=== PATIENT | male | born 1965 | race Caucasian/White ===

== ENCOUNTER 2018-05-05 12:03 | Emergency (ER) | payer BC ==
[2018-05-05 13:50] VITALS: BP 139/93
--- NOTE | 2018-08-02 14:39 | UC ---
Ear Complaint HPI - HPI Summary HPI Summary: L ear had blood and waxy discharge after using qtip last night. since then hearing has changed. - History of Current Complaint Chief Complaint: UCEar Stated Complaint: LT EAR PAIN Time Seen by Provider: 05/05/18 13:37 Hx Obtained From: Patient Onset/Duration: Sudden Onset Pain Intensity: 0 Pain Scale Used: 0-10 Numeric Aggravating Factors: Nothing Alleviating Factors: Nothing - Allergies/Home Medications Allergies/Adverse Reactions: Allergies Allergy/AdvReac Type Severity Reaction Status Date / Time No Known Allergies Allergy Verified 02/14/17 10:49 PMH/Surg Hx/FS Hx/Imm Hx GI/ History: Gastroesophageal Reflux - Surgical History Surgical History: Yes Surgery Procedure, Year, and Place: radical neck surgery 2012 - Family History Known Family History: Positive: Cardiac Disease - Social History Alcohol Use: Daily Alcohol Amount: 12 pack daily Substance Use Type: None Smoking Status (MU): Heavy Every Day Tobacco Smoker Type: Cigarettes Amount Used/How Often: 1PPD Length of Time of Smoking/Using Tobacco: since age 16 Have You Smoked in the Last Year: Yes Household Exposure Type: Cigarettes - Immunization History Most Recent Tetanus Shot: unknown, doesn't think he's UTD Review of Systems All Other Systems Reviewed And Are Negative: Yes Constitutional: Negative: Fever Skin: Negative: Rash ENT: Positive: Other - L ear: muffled hearing, noticed blood and wax.. Negative : Ear Ache Physical Exam Triage Information Reviewed: Yes Appearance: Well-Appearing Vital Signs: Initial Vital Signs Temp 98.8 F 05/05/18 13:42 Pulse 83 05/05/18 13:42 Resp 18 05/05/18 13:42 BP 139/93 05/05/18 13:42 Pulse Ox 100 05/05/18 13:42 Vital Signs Reviewed: Yes ENT: Positive: Hearing grossly normal, Pharynx normal, TMs normal - R side, Other - L canal has some trauma , L TM unclear if torn Neck: Positive: Supple Ear Complaint Course/Dx - Course Course Of Treatment: Trauma w/ qtip to L canal/?TM. will rx antibx to cover for possible tear but strongly encouraged to f/u w ENT given his hx. hearing is grossly intact today. - Differential Dx/Diagnosis Differential Diagnosis/HQI/PQRI: Barotrauma, Otitis Media, URI Provider Diagnosis: Hearing loss Discharge - Sign-Out/Discharge Documenting (check all that apply): Patient Departure All imaging exams completed and their final reports reviewed: No Studies - Discharge Plan Condition: Good Disposition: HOME Prescriptions: Ciproflox/Dexameth OTIC.SUSP* [Ciprodex OTIC.SUSP*] 1 drop .SEE ORDER BID 5 Days #1 btl Patient Education Materials: Hearing Loss (ED) Referrals: Gary Mccurdy [Medical Doctor] - Additional Instructions: Please follow up with ENT to get evaluated. Given your history of cancer this should be followed up outpatient. - Billing Disposition and Condition Condition: GOOD Disposition: Home
== END 2018-05-05 14:07 | disposition home or self-care (01) ==
LOC: UCCORT 12:03
DX: H91.92 Unspecified hearing loss, left ear (principal); H92.22 Otorrhagia, left ear; K21.9 Gastro-esophageal reflux disease without esophagitis; F17.210 Nicotine dependence, cigarettes, uncomplicated
CPT/HCPCS: 99212; G0463

== ENCOUNTER 2022-09-30 14:39 | Inpatient (IN) ==
[2022-09-30] MEDS ORDERED: TENECTEPLASE 50 MG VIAL KIT 5 MG/ML (reconstituted) IV ONE (14:44)
[2022-09-30] MEDS ORDERED: Labetalol IV 5 MG/ML 20 ml VIAL ONE (14:45)
[2022-09-30] MEDS ORDERED: niCARdipine 0.1MG/ML IVPREMIX 20 MG/200 ML BAG IV ONE (14:45)
[2022-09-30] MEDS ORDERED: Iodixanol (CONTRAST) 320 MG/ML 100 ML SDV IV ONE (14:49)
[2022-09-30] MEDS ORDERED: Labetalol IV 5 MG/ML 20 ml VIAL IV PUSH ONE ×2 (15:02→17:03)
[2022-09-30] MEDS ORDERED: NS 0.9% 1000 ml BAG 1,000 ML IV ONE (15:07)
[2022-09-30 15:16] LABS: ABS Basophils 0.1 10^3/uL (0.0-0.1); ABS Eosinophils 0.1 10^3/uL (0.0-0.5); ABS Monocytes 0.7 10^3/uL (0.0-1.1); ABS Neutrophils 3.7 10^3/uL (1.5-7.6); ABS Nucleated RBC 0.01 10^3/ul; Eosinophil % 1.5 %; Hematocrit 45.5 % (38-53); Hemoglobin 15.6 g/dL (13.2-16.3); Lymphocyte % 18.7 %; Mean Corpuscular Hemoglobin 32.4 pg (27-33); Mean Corpuscular Hgb Conc 34.4 g/dL (31-36); Mean Corpuscular Volume 94.1 fL (80-97); Mean Platelet Volume 7.6 fL (7.5-11.2); Nucleated Red Blood Cells % 0.1 /100 WBC (0.0-0.4); Platelet Count 234 10^3/uL (150-450); Red Blood Count 4.83 10^6/uL (4.06-5.63); White Blood Count 5.5 10^3/uL (3.6-10.2)
[2022-09-30 15:48] LABS: Albumin 4.1 g/dL (3.2-5.2); Albumin/Globulin Ratio 1.2 (1-3); Calcium 9.1 mg/dL (8.6-10.3); Creatinine, Serum 0.76 mg/dL (0.67-1.17); Globulin 3.3 g/dL (2-4); HDL Cholesterol 55.3 mg/dL; Potassium 3.9 mmol/L (3.5-5.0); Total Bilirubin 0.3 mg/dL (0.2-1.0); Total Protein 7.4 g/dL (6.4-8.9); eGFR CKD-EPI 105.5 (>60)
[2022-09-30 17:35] LABS: Urine Appearance Clear; Urine Bilirubin Negative (Negative); Urine Blood Negative (Negative); Urine Color Yellow; Urine Glucose Negative (Negative); Urine Ketones Negative (Negative); Urine Nitrite Negative (Negative); Urine Protein Negative (Negative); Urine Specific Gravity 1.027 (1.002-1.030); Urine Urobilinogen Negative (Negative)
[2022-09-30 17:36] LABS: Urine Bacteria Absent (Absent); Urine Red Blood Cell Absent (Absent); Urine White Blood Cell Absent (Absent)
[2022-09-30] MEDS ORDERED: Nicotine PATCH 14 MG/24 HR PATCH TRANSDERM ONE (20:37)
[2022-09-30] MEDS ORDERED: Enoxaparin 40 MG/0.4 ML SYR SUBCUT SCH (21:00)
[2022-09-30] MEDS ORDERED: Thiamine 100 MG/ML 2 ml VIAL (200 mg) IM ONE (22:23)
[2022-09-30] MEDS ORDERED: Iohexol 350 (CONTRAST) 500 ML MDV IV ONE (22:39)
[2022-10-01] MEDS: Multivitamins/Minerals TAB PO SCH ×2 (01:10→10:24)
[2022-10-01] MEDS: Enoxaparin 40 MG/0.4 ML SYR SUBCUT SCH (01:10)
[2022-10-01] MEDS ORDERED: Al Hydrox/Mg Hydrox/Simet LIQ 30 ML UDC PO PRN (11:29)
[2022-10-01 12:14] LABS: TSH Ultra Thyroid Stim Horm 3.8 mcIU/mL (0.34-5.60)
[2022-10-01] MEDS ORDERED: Nicotine GUM 4MG FRUIT FLAVOR PO PRN (12:35)
[2022-10-01] MEDS ORDERED: Gadoteridol (CONTRAST) 279.3 MG/ML 10 ML IV ONE (15:26)
[2022-10-01 16:58] LABS: Calcium 8.8 mg/dL (8.6-10.3); Creatinine, Serum 0.79 mg/dL (0.67-1.17); Potassium 3.8 mmol/L (3.5-5.0); eGFR CKD-EPI 104.3 (>60)
[2022-10-01] MEDS: Nicotine PATCH 21 MG/24 HR PATCH TRANSDERM SCH (22:44)
[2022-10-02] MEDS: Enoxaparin 40 MG/0.4 ML SYR SUBCUT SCH ×2 (00:03→23:59)
[2022-10-02 06:45] LABS: Calcium 8.8 mg/dL (8.6-10.3); Creatinine, Serum 0.76 mg/dL (0.67-1.17); Potassium 3.6 mmol/L (3.5-5.0); eGFR CKD-EPI 105.5 (>60)
[2022-10-02] MEDS: Multivitamins/Minerals TAB PO SCH (09:22)
[2022-10-02] MEDS: Nicotine PATCH 21 MG/24 HR PATCH TRANSDERM SCH (09:26)
[2022-10-02] MEDS ORDERED: Acetaminophen IV 1 GM/100ML 1,000 MG/100 ML BAG IV ONE (18:03)
[2022-10-03] MEDS: Nicotine PATCH 21 MG/24 HR PATCH TRANSDERM SCH (09:16)
[2022-10-03] MEDS: Multivitamins/Minerals TAB PO SCH (09:17)
[2022-10-03] MEDS: Carbamide Peroxide 6.5% OTIC 15 ML BTL LEFT EAR SCH (20:35)
[2022-10-03] MEDS: Enoxaparin 40 MG/0.4 ML SYR SUBCUT SCH (23:45)
[2022-10-04 06:58] LABS: Creatinine, Serum 0.66 mg/dL (0.67-1.17); Potassium 3.9 mmol/L (3.5-5.0); eGFR CKD-EPI 110.1 (>60)
[2022-10-04] MEDS: Multivitamins/Minerals TAB PO SCH (09:14)
[2022-10-04] MEDS: Carbamide Peroxide 6.5% OTIC 15 ML BTL LEFT EAR SCH (09:19)
[2022-10-04] MEDS: Nicotine PATCH 21 MG/24 HR PATCH TRANSDERM SCH (09:21)
[2022-10-04 12:02] VITALS: BP 137/90
== END 2022-10-04 13:50 | disposition home or self-care (01) | DRG 45 ==
LOC: ED 14:39 → EDHOLD 14:39 → SUATTDRO 20:28 → EDHOLD 10-01 00:07 → MEDTELE 10-01 00:18
PROVIDERS: ADMIT Internal Medicine; ATTEND Internal Medicine